=== PATIENT | female | born 1960 | race African-American/Black ===

== ENCOUNTER 2020-12-04 12:30 | Outpatient (CLI) | payer MEDICARE | END 2020-12-04 12:31 | disposition home or self-care (01) | LOC: BICRAD 12:30 | PROVIDERS: ATTEND Internal Medicine Gastroenterology | DX: K21.9 Gastro-esophageal reflux disease without esophagitis (principal); R10.13 Epigastric pain; R11.0 Nausea; K59.09 Other constipation; R63.4 Abnormal weight loss; Z86.010 Personal history of colon polyps | CPT/HCPCS: 71046 ==

== ENCOUNTER 2021-01-10 09:24 | Outpatient (CLI) | payer MEDICARE | END 2021-01-10 09:25 | disposition home or self-care (01) | LOC: BICMAMMO 09:24 | PROVIDERS: ATTEND Nurse Practitioner Family | DX: Z12.31 Encounter for screening mammogram for malignant neoplasm of breast (principal); M81.0 Age-related osteoporosis without current pathological fracture; M85.89 Other specified disorders of bone density and structure, multiple sites; Z80.3 Family history of malignant neoplasm of breast | CPT/HCPCS: 77063; 77067; 77080 ==